=== PATIENT | female | born 1985 | race Caucasian/White ===

== ENCOUNTER 2020-11-01 10:25 | Emergency (ER) | payer MEDICAID ==
[~2020-11-01] VITALS: Ht 165.1 cm; Wt 90.9 kg
[2020-11-01 10:30] VITALS: BP 140/109
== END 2020-11-01 11:33 | disposition home or self-care (01) ==
LOC: ER 10:26
DX: U07.1 COVID-19 (principal); R05 Cough; Z88.8 Allergy status to other drugs, medicaments and biological substances; Z72.89 Other problems related to lifestyle; Z56.0 Unemployment, unspecified
CPT/HCPCS: 36415; 87635; 99283

== ENCOUNTER 2020-11-06 08:42 | Emergency (ER) | payer MEDICAID ==
[~2020-11-06] VITALS: Ht 165.1 cm; Wt 90.9 kg
== END 2020-11-06 10:00 | disposition home or self-care (01) ==
LOC: ER 08:42
DX: U07.1 COVID-19 (principal); R07.89 Other chest pain; R43.8 Other disturbances of smell and taste; Z72.89 Other problems related to lifestyle; Z56.0 Unemployment, unspecified; Z88.6 Allergy status to analgesic agent
CPT/HCPCS: 93005; 99283

== ENCOUNTER 2022-12-27 08:36 | Emergency (ER) | payer MEDICAID ==
[~2022-12-27] VITALS: Ht 165.1 cm; Wt 88.6 kg
[2022-12-27 11:15] LABS: BASOPHILS % (AUTO) 0.5 % (0-1); EOSINOPHILS % (AUTO) 0.2 % (0-6); HEMATOCRIT 47.4 % (35.0-45.0); HEMOGLOBIN 16.3 g/dl (12.0-16.0); LYMPHOCYTES # (AUTO) 1.6 X10'3 (1.1-4.8); LYMPHOCYTES % (AUTO) 19.1 % (21-51); MEAN CORPUSCULAR HEMOGLOBIN 31.4 PG (27.0-31.0); MEAN CORPUSCULAR HGB CONC 34.5 g/dL (33.0-36.5); MEAN CORPUSCULAR VOLUME 91.2 FL (78-98); MEAN PLATELET VOLUME 8.1 FL (7.4-10.4); MONOCYTES # (AUTO) 0.6 X10'3 (0-0.9); MONOCYTES % (AUTO) 6.9 % (2-12); NEUTROPHILS % (AUTO) 73.3 % (42-75); PLATELET COUNT 257 X10'3 (140-440); WHITE BLOOD COUNT 8.2 X10'3 (4.5-11.0)
[2022-12-27 11:40] LABS: URINE HCG NEGATIVE (NEG)
[2022-12-27 11:42] LABS: COLOR,URINE YELLOW (Yellow); GLUCOSE, URINE NEGATIVE (Neg); KETONES,URINE NEGATIVE (Neg); LEUKOCYTE ESTERASE ,URINE NEGATIVE (Neg); NITRITES, URINE NEGATIVE (Neg); OCCULT BLOOD,URINE LARGE (Neg); PROTEIN,URINE NEGATIVE (Neg); UROBILINOGEN,URINE 0.2 E.U/dL (0.2-1.0)
[2022-12-27 11:45] LABS: UA COLLECTION TYPE CLN CATCH MIDSTREAM
[2022-12-27 11:49] LABS: BACTERIA,URINE 1+ /HPF (Neg); SQUAMOUS EPITHELIAL CELL,UR MODERATE /LPF (FEW); WBC,URINE 0-4 /HPF (0-4)
[2022-12-27 11:53] LABS: ALANINE AMINOTRANSFERASE 33 U/L (12-78); ALBUMIN 3.6 G/DL (3.4-5.0); ALBUMIN/GLOBULIN RATIO 1.2 (1.1-1.5); ALKALINE PHOSPHATASE 61 IU/L (46-116); ANION GAP 4 (8-16); ASPARTATE AMINO TRANSFERASE 16 U/L (10-37); BILIRUBIN,TOTAL 0.4 MG/DL (0.1-1.0); BLOOD UREA NITROGEN 12 MG/DL (7-18); BUN/CREATININE RATIO 17.9 (6.6-38.0); CALCIUM 8.9 MG/DL (8.5-10.1); CHLORIDE 108 MMOL/L (99-107); CREATININE 0.67 MG/DL (0.40-0.90); GLUCOSE 96 MG/DL (70-104); POTASSIUM 4.3 MMOL/L (3.5-5.1); SODIUM 139 MMOL/L (135-145); TOTAL CARBON DIOXIDE 27.1 MMOL/L (24-32); TOTAL PROTEIN 6.7 G/DL (6.4-8.2); eGFR > 90 ML/MIN
[2022-12-27] MEDS ORDERED: lisinopril 10 MG tablet PO ONE (11:55)
[2022-12-27 11:56] LABS: CLARITY,URINE SLIGHTLY CLOUDY (Clear)
--- NOTE | 2022-12-27 12:47 | NUR ---
PT DOESN'T WANT TO TAKE 10 MG LISINOPRIL SINCE SHE ONLY TAKES 5 AT HOME. PROVIDER IS OK WITH 10MG AND PTS HTN IS WITHIN REASON TO RECEIVE THAT DOSE. SHE REFUSED MED AND STATES SHE WILL TAKE HER OWN 5MG WHEN SHE GETS HOME. PROVIDER AWARE.
[2022-12-27 14:44] VITALS: BP 143/108
== END 2022-12-27 14:45 | disposition home or self-care (01) ==
LOC: ER 08:37
DX: I10 Essential (primary) hypertension (principal); R42 Dizziness and giddiness; R94.6 Abnormal results of thyroid function studies; R51.9 Headache, unspecified; F17.210 Nicotine dependence, cigarettes, uncomplicated; Z72.89 Other problems related to lifestyle; Z56.0 Unemployment, unspecified; Z88.6 Allergy status to analgesic agent
CPT/HCPCS: 36415; 80053; 81001; 81025; 84443; 84484; 85025; 93005; 99285

== ENCOUNTER 2023-10-13 06:03 | Emergency (ER) | payer MEDICAID ==
[~2023-10-13] VITALS: Ht 165.1 cm; Wt 83.6 kg
[2023-10-13 06:31] LABS: BASOPHILS # (AUTO) 0.1 X10'3 (0-0.2); BASOPHILS % (AUTO) 0.8 % (0-1); EOSINOPHILS # (AUTO) 0.1 X10'3 (0-0.9); HEMATOCRIT 49.9 % (35.0-45.0); HEMOGLOBIN 16.8 g/dl (12.0-16.0); LYMPHOCYTES # (AUTO) 2.3 X10'3 (1.1-4.8); LYMPHOCYTES % (AUTO) 22.6 % (21-51); MEAN CORPUSCULAR HEMOGLOBIN 31.3 PG (27.0-31.0); MEAN CORPUSCULAR HGB CONC 33.7 g/dL (33.0-36.5); MEAN CORPUSCULAR VOLUME 93.1 FL (78-98); MEAN PLATELET VOLUME 8.5 FL (7.4-10.4); MONOCYTES # (AUTO) 0.7 X10'3 (0-0.9); MONOCYTES % (AUTO) 7.2 % (2-12); NEUTROPHILS # (AUTO) 6.9 X10'3 (1.8-7.7); NEUTROPHILS % (AUTO) 68.4 % (42-75); PLATELET COUNT 292 X10'3 (140-440); RED BLOOD COUNT 5.36 X10'6 (4.20-5.60); RED CELL DISTRIBUTION WIDTH 14.4 % (11.5-14.5); WHITE BLOOD COUNT 10.1 X10'3 (4.5-11.0)
[2023-10-13] MEDS ORDERED: LORazepam 0.5 MG tablet PO STA (06:36)
[2023-10-13 06:46] LABS: ALANINE AMINOTRANSFERASE 25 U/L (12-78); ALBUMIN 3.8 G/DL (3.4-5.0); ALBUMIN/GLOBULIN RATIO 1.2 (1.1-1.5); ALKALINE PHOSPHATASE 62 IU/L (46-116); ANION GAP 9 (8-16); ASPARTATE AMINO TRANSFERASE 13 U/L (10-37); BILIRUBIN,TOTAL 0.4 MG/DL (0.1-1.0); BLOOD UREA NITROGEN 13 MG/DL (7-18); BUN/CREATININE RATIO 13.5 (10.0-20.0); CHLORIDE 105 MMOL/L (99-107); CREATININE 0.96 MG/DL (0.40-0.90); GLUCOSE 98 MG/DL (70-104); POTASSIUM 3.9 MMOL/L (3.5-5.1); SODIUM 139 MMOL/L (135-145); eCRCL 73 ML/MIN; eGFR 66 ML/MIN
[2023-10-13 06:53] LABS: PRO BRAIN NATRIURETIC PEPTIDE < 30 PG/ML (0-125)
[2023-10-13] MEDS ORDERED: clopidogrel 75mg tablet PO SCH (08:00)
[2023-10-13 08:49] LABS: FREE T4 (FREE THYROXINE) 1.35 NG/DL (0.73-1.40)
[2023-10-13 09:39] VITALS: BP 151/100; PULSE 76; RESP 16; TEMP 98.2; O2SAT 97
== END 2023-10-13 09:47 | disposition home or self-care (01) ==
LOC: ER 06:03
DX: R07.89 Other chest pain (principal); R11.0 Nausea; R06.02 Shortness of breath; I10 Essential (primary) hypertension; F17.200 Nicotine dependence, unspecified, uncomplicated; Z56.0 Unemployment, unspecified; Z72.89 Other problems related to lifestyle; Z88.8 Allergy status to other drugs, medicaments and biological substances
CPT/HCPCS: 36415; 71045; 80053; 83880; 84439; 84443; 84484; 85025; 93005; 99285